=== PATIENT | male | born 1960 | race Caucasian/White ===

== ENCOUNTER 2020-05-28 07:48 | Outpatient (CLI) | payer BC, SELFPAY ==
--- NOTE | ~2020-05-28 | MR_ITS ---
EXAMINATION: MR brain/brain stem wo/w con DATE: 05/28/2020 09:46 INDICATION: Brain episode. Abnormal head CT. TECHNIQUE: Magnetic resonance imaging (MRI) of the brain and brainstem was performed without and with 10 mL MultiHance intravenous contrast. Sequences included sagittal and axial T1-weighted FSE, axial diffusion-weighted FS EPI, axial T2*-weighted GRE, axial T2-weighted FLAIR Propeller, and axial T2-we ighted Propeller. Postcontrast sequences included axial and coronal T1-weighted FSE. Apparent diffusi on coefficient (ADC) maps were created. COMPARISON: None. FINDINGS: There is no intracranial hemorrhage, acute infarction, or abnormal intracranial mass lesion . There is a developmental venous anomaly in posterior left frontal lobe. The ventricles are normal i n size. There is mild mucosal thickening in the paranasal sinuses. The orbits are normal. The mastoid air cells are normal. IMPRESSION: 1. Normal brain. Reviewed, dictated and finalized at location A. L ADMINISTRATOR IMPRESSION: 1. Normal brain.
[2020-05-28 08:37] LABS: Estimated Glomerular Filt Rate > 60
== END 2020-05-28 07:49 | disposition home or self-care (01) ==
LOC: CHSIMG 07:52
PROVIDERS: PCP Family Medicine; Visit Provider Family Medicine
DX: R93.0 Abnormal findings on diagnostic imaging of skull and head, not elsewhere classified (principal)
CPT/HCPCS: 70553; A9577